=== PATIENT | male | born 1960 | race Caucasian/White ===

== ENCOUNTER 2019-04-29 16:38 | Inpatient (IN) | payer BC ==
[~2019-04-29] VITALS: Ht 188 cm; Wt 121.5 kg
[2019-04-29] MEDS ORDERED: ACETAMINOPHEN 325 MG TAB PO ONE ×2 (16:42→16:45)
[2019-04-29 17:26] LABS: Basophils # (auto) 0 uL; Basophils % (auto) 1.1 % (0.0-2.0); Eosinophils # (auto) 0 uL; Eosinophils % (auto) 0.3 % (0.0-7.0); Hematocrit 43.4 % (41.0-53.0); Hemoglobin 14.7 g/dL (13.5-17.5); Lymphocytes # (auto) 0.5 uL; Lymphocytes % (auto) 10.8 % (10.0-50.0); Mean Corpuscular Hemoglobin 29.6 pg (28.0-32.0); Mean Corpuscular Hgb Conc. 33.9 g/dL (32.0-36.0); Mean Corpuscular Volume 87.2 fL (80.0-100.0); Monocytes # (auto) 0.4 uL; Monocytes % (auto) 9.2 % (0.0-12.0); Neutrophils # (auto) 3.3 uL; Neutrophils % (auto) 78.6 % (37.0-80.0); Nucleated Red Blood Cells % 0.1 %; Platelet Count (auto) 212 10^3/uL (140-450); Red Blood Cells 4.98 10^6/uL (4.5-5.90); Red Cell Distribution Width 14.7 % (11.8-14.3); White Blood Cell 4.2 10^3/uL (4.4-10.8)
[2019-04-29 17:31] LABS: Albumin 3.8 g/dL (3.4-5.0); Anion Gap 6 (5-15); Blood Urea Nitrogen 18 mg/dL (7-18); Calcium 8.8 mg/dL (8.5-10.1); Carbon Dioxide 29 mmol/L (21-32); Chloride 101 mmol/L (98-107); Glucose 142 mg/dL (74-106); Magnesium 2.3 mg/dL (1.6-2.6); Potassium 3.5 mmol/L (3.5-5.1); Sodium 136 mmol/L (136-145)
[2019-04-29 17:37] LABS: Alanine Aminotransferase 54 U/L (16-61); Alkaline Phosphatase 45 U/L (45-117); Aspartate Aminotransferase 39 U/L (15-37); BUN/Creatinine Ratio 11.8; Bilirubin, Total 0.6 mg/dL (0.2-1.0); GFR African American 60 mL/min; GFR Non-African American 50 mL/min; Total Protein 7.7 g/dL (6.4-8.2)
[2019-04-29 18:52] LABS: INR 0.97 (0.9-1.15); Partial Thromboplastin Time 29.6 sec (23.64-32.05)
[2019-04-29] MEDS ORDERED: cefTRIAXone 1GM/50ML D5W 50 ML IV ONE (21:30)
[2019-04-29] MEDS ORDERED: SODIUM CHLORIDE 0.9% 500 ML IV ONE (21:30)
[2019-04-29] MEDS ORDERED: IODIXANOL 320MG/ML 100ML BTL IV ONE (22:05)
[2019-04-29] MEDS ORDERED: ONDANSETRON HCL 4 MG/2 ML VIAL IV PRN (23:00)
[2019-04-29] MEDS ORDERED: MORPHINE SULF INJ 2 MG/ML SYRINGE 1ML IV PRN (23:00)
[2019-04-29] MEDS ORDERED: TEMAZEPAM 15 MG CAP PO PRN (23:00)
[2019-04-29] MEDS ORDERED: ACETAMINOPHEN 325 MG TAB PO PRN (23:00)
[2019-04-29] MEDS ORDERED: NITROGLYCERIN 0.4 MG SL TAB SL PRN (23:00)
[2019-04-29] MEDS ORDERED: METOPROLOL TARTRATE 50 MG TAB PO ONE (23:00)
[2019-04-29] MEDS ORDERED: HYDROcodone-ACET 5/325MG TAB PO PRN (23:00)
[2019-04-30 03:00] VITALS: BP 121/69
[2019-04-30 06:34] LABS: Basophils # (auto) 0 uL; Eosinophils # (auto) 0 uL; Eosinophils % (auto) 0.4 % (0.0-7.0); Hematocrit 40.1 % (41.0-53.0); Hemoglobin 13.6 g/dL (13.5-17.5); Lymphocytes # (auto) 0.4 uL; Lymphocytes % (auto) 13.4 % (10.0-50.0); Mean Corpuscular Hemoglobin 29.3 pg (28.0-32.0); Mean Corpuscular Volume 86.2 fL (80.0-100.0); Monocytes # (auto) 0.4 uL; Monocytes % (auto) 12.5 % (0.0-12.0); Neutrophils # (auto) 2.3 uL; Neutrophils % (auto) 72.7 % (37.0-80.0); Nucleated Red Blood Cells % 0.3 %; Platelet Count (auto) 180 10^3/uL (140-450); Red Blood Cells 4.65 10^6/uL (4.5-5.90); Red Cell Distribution Width 14.5 % (11.8-14.3); White Blood Cell 3.2 10^3/uL (4.4-10.8)
[2019-04-30 06:47] LABS: BUN/Creatinine Ratio 13.6; Calcium 8.3 mg/dL (8.5-10.1); Potassium 3.4 mmol/L (3.5-5.1)
--- NOTE | 2019-04-30 07:30 | NUR ---
Opening Shift Note Assumed care of patient, awake and alert. No S/S of distress/SOB or pain. Sitting up at bedside with . Call light within reach, instructed on POC and to call for assist PRN, will continue to monitor for changes Q1hr and PRN.
[2019-04-30 08:00] VITALS: BP 161/91
[2019-04-30] MEDS: METOPROLOL TARTRATE 50 MG TAB PO SCH ×2 (08:36→22:27)
[2019-04-30] MEDS: HCTZ 25 MG TAB PO SCH (08:36)
[2019-04-30] MEDS: FAMOTIDINE 20 MG TAB PO SCH ×2 (08:37→22:27)
[2019-04-30] MEDS: CLOPIDOGREL BISULFATE 75 MG TAB PO SCH (08:37)
[2019-04-30 09:00] VITALS: BP 131/67
[2019-04-30] MEDS: cefTRIAXone 1GM/50ML D5W 50 ML IV SCH ×3 (09:00→16:25)
[2019-04-30 13:00] VITALS: BP 123/71
[2019-04-30 16:47] VITALS: BP 149/75
[2019-04-30 21:28] LABS: Urine Bacteria NONE SEEN /hpf (None Seen); Urine Blood Negative /uL (Negative); Urine Mucus FEW (None Seen); Urine Specific Gravity 1.009 (1.001-1.035); Urine WBC <1 /hpf (0 - 3)
[2019-04-30 22:00] VITALS: BP 140/69
[2019-05-01 05:32] VITALS: BP 130/68
[2019-05-01 05:45] LABS: Basophils # (auto) 0 uL; Basophils % (auto) 0.9 % (0.0-2.0); Eosinophils # (auto) 0 uL; Eosinophils % (auto) 0.6 % (0.0-7.0); Hematocrit 42.8 % (41.0-53.0); Hemoglobin 14.5 g/dL (13.5-17.5); Lymphocytes # (auto) 0.3 uL; Lymphocytes % (auto) 13.1 % (10.0-50.0); Mean Corpuscular Hemoglobin 29.2 pg (28.0-32.0); Mean Corpuscular Hgb Conc. 33.8 g/dL (32.0-36.0); Mean Corpuscular Volume 86.2 fL (80.0-100.0); Monocytes # (auto) 0.3 uL; Monocytes % (auto) 10.6 % (0.0-12.0); Neutrophils # (auto) 1.9 uL; Neutrophils % (auto) 74.8 % (37.0-80.0); Nucleated Red Blood Cells % 0.1 %; Platelet Count (auto) 189 10^3/uL (140-450); Red Blood Cells 4.96 10^6/uL (4.5-5.90); Red Cell Distribution Width 14.1 % (11.8-14.3); White Blood Cell 2.5 10^3/uL (4.4-10.8)
[2019-05-01 05:59] LABS: Albumin 3.2 g/dL (3.4-5.0); BUN/Creatinine Ratio 9.4; Calcium 8.8 mg/dL (8.5-10.1); Magnesium 2.2 mg/dL (1.6-2.6); Potassium 3.7 mmol/L (3.5-5.1)
[2019-05-01 06:03] LABS: Bilirubin, Total 0.4 mg/dL (0.2-1.0); Total Protein 6.8 g/dL (6.4-8.2)
--- NOTE | 2019-05-01 07:25 | NUR ---
Opening Note Received report from table games shift manager RN. Patient is awake, alert and oriented x4. No signs or symptoms of distress noted at this time. Patient denies pain at this time. Patient is on room air, respirations even and unlabored. Reviewed plan of care with patient, patient verbalized understanding. Bed in low and locked position, call light within reach. Will continue to monitor Q1 hour an PRN.
--- NOTE | 2019-05-01 08:05 | NUR ---
Patient ambulating in hallway Patient ambulating in hallway, gait steady. No signs or symptoms of distress noted at this time.
[2019-05-01] MEDS: cefTRIAXone 1GM/50ML D5W 50 ML IV SCH (08:40)
[2019-05-01 09:00] VITALS: BP 137/64
--- NOTE | 2019-05-01 10:30 | NUR ---
Family at bedside
[2019-05-01] MEDS: METOPROLOL TARTRATE 50 MG TAB PO SCH ×2 (11:03→22:06)
[2019-05-01] MEDS: HCTZ 25 MG TAB PO SCH (11:03)
[2019-05-01] MEDS: FAMOTIDINE 20 MG TAB PO SCH ×2 (11:03→22:06)
[2019-05-01] MEDS: CLOPIDOGREL BISULFATE 75 MG TAB PO SCH (11:04)
[2019-05-01 13:00] VITALS: BP 137/79
--- NOTE | 2019-05-01 15:15 | NUR ---
Dr. More at bedside Dr. More at bedside reviewing plan of care with patient and .
[2019-05-01] MEDS ORDERED: IOHEXOL 300 MG/ML 100ML BOTTLE IJ ONE (15:16)
[2019-05-01] MEDS ORDERED: GASTROGRAFIN 30 ML SOL ONE (15:16)
[2019-05-01] MEDS ORDERED: AZITHROMYCIN 500MG/ 250ML 250 ML IV ONE (16:00)
[2019-05-01 17:00] VITALS: BP 152/81
--- NOTE | 2019-05-01 18:04 | NUR ---
Patient taken down for CT
--- NOTE | 2019-05-01 19:00 | NUR ---
Patient back to room
--- NOTE | 2019-05-01 19:30 | NUR ---
Closing Note Report given to senior linux unix engineer RN. No signs or symptoms of distress noted at this time. Family at bedside.
--- NOTE | 2019-05-01 19:31 | NUR ---
Opening Shift Note Assumed care of patient, awake and alert. No S/S of distress/SOB or pain. at bedside. Bed in lowest locked position, side rails up x2, call light within reach. Instructed on POC and to call for assist PRN, will continue to monitor for changes Q1hr and PRN.
[2019-05-01 22:00] VITALS: BP 105/45
[2019-05-02 05:00] VITALS: BP 136/70
--- NOTE | 2019-05-02 06:31 | NUR ---
Temperature Temperature noted to be 99.4 and 99.6 respectively throughout shift. Cooling measures provided. Temperature reassessed at this time and found to be 98.9. No s/s of distress. Will continue to monitor.
--- NOTE | 2019-05-02 06:38 | NUR ---
Closing Note Patient lying in bed awake and alert. No s/s of distress. Will endorse care to dayshift RN.
[2019-05-02 07:01] LABS: Basophils # (auto) 0 uL; Basophils % (auto) 1.1 % (0.0-2.0); Eosinophils # (auto) 0 uL; Eosinophils % (auto) 0.8 % (0.0-7.0); Hematocrit 44.6 % (41.0-53.0); Hemoglobin 15.2 g/dL (13.5-17.5); Lymphocytes # (auto) 0.6 uL; Lymphocytes % (auto) 20.1 % (10.0-50.0); Mean Corpuscular Hemoglobin 29.2 pg (28.0-32.0); Mean Corpuscular Hgb Conc. 34.1 g/dL (32.0-36.0); Mean Corpuscular Volume 85.8 fL (80.0-100.0); Monocytes # (auto) 0.4 uL; Monocytes % (auto) 14.3 % (0.0-12.0); Neutrophils # (auto) 1.9 uL; Neutrophils % (auto) 63.7 % (37.0-80.0); Nucleated Red Blood Cells % 0.5 %; Platelet Count (auto) 220 10^3/uL (140-450); Red Blood Cells 5.19 10^6/uL (4.5-5.90); Red Cell Distribution Width 14.1 % (11.8-14.3)
[2019-05-02 07:12] LABS: Potassium 3.8 mmol/L (3.5-5.1)
[2019-05-02 07:17] LABS: BUN/Creatinine Ratio 10.4
--- NOTE | 2019-05-02 07:30 | NUR ---
OPENING SHIFT NOTE PATIENT IS UP AMBULATING WITH A STEADY GAIT SHOWING NO S/S OF DISTRESS OR SOB AT THIS TIME . DENIES ANY PAIN. PATIENT VERBALIZED UNDERSTANDING OF DAY POC. WILL CONTINUE TO MONITOR
[2019-05-02 08:00] VITALS: BP 138/76
[2019-05-02 08:35] VITALS: BP 138/76
[2019-05-02] MEDS: cefTRIAXone 1GM/50ML D5W 50 ML IV SCH (09:22)
[2019-05-02] MEDS ORDERED: AZITHROMYCIN 500MG/ 250ML 250 ML IV SCH (10:00)
[2019-05-02] MEDS: FAMOTIDINE 20 MG TAB PO SCH (10:27)
[2019-05-02] MEDS: CLOPIDOGREL BISULFATE 75 MG TAB PO SCH (10:27)
[2019-05-02] MEDS: HCTZ 25 MG TAB PO SCH (10:27)
[2019-05-02] MEDS: METOPROLOL TARTRATE 50 MG TAB PO SCH (10:27)
[2019-05-02] MEDS ORDERED: DOXY-216 PO (11:29)
[2019-05-02] MEDS ORDERED: DOXYCYCLINE 100MG/250ML 250 ML IV ONE (11:30)
[2019-05-02 12:25] VITALS: BP 130/76
[2019-05-02 12:30] VITALS: BP 130/76
--- NOTE | 2019-05-02 13:33 | NUR ---
DISCHARGE NOTE ALL DISCHARGE INSTRUCTIONS WERE GIVEN, ALL QUESTIONS AND CONCERNS ANSWERED AND ADDRESSED, PATIENT VERBALIZED UNDERSTANDING. PATIENT SHOWING NO S/S OF DISTRESS OR SOB AND DENIES ANY PAIN AT THIS TIME. PATIENT REQUESTED TO AMBULATE TO PERSONAL VEHICLE. PATIENTS GAIT IS STEADY. IV REMOVED USING [employer] TECHNIQUE CATHETER INTACT AND PRESSURE DRESSING APPLIED TOLERATED WELL. TELE BOX REMOVED AND RETURNED TO [facility].
== END 2019-05-02 13:30 | disposition home or self-care (01) | DRG 866 ==
LOC: ER 16:46 → TELE 22:55 → TELE-WESTW 04-30 02:08
PROVIDERS: ADMIT Nurse Practitioner; ATTEND Nurse Practitioner
DX: B34.9 Viral infection, unspecified (principal); E66.9 Obesity, unspecified; D72.819 Decreased white blood cell count, unspecified; E78.5 Hyperlipidemia, unspecified; I10 Essential (primary) hypertension; I25.10 Atherosclerotic heart disease of native coronary artery without angina pectoris; Z96.642 Presence of left artificial hip joint; K80.20 Calculus of gallbladder without cholecystitis without obstruction; Z95.5 Presence of coronary angioplasty implant and graft; Z68.34 Body mass index [BMI] 34.0-34.9, adult
CPT/HCPCS: 36415; 71046; 71260; 74177; 80048; 80053; 80061; 81001; 83605; 83735; 83880; 84443; 84484; 85025; 85379; 85610; 85652; 85730; 87040; 87086; 87804; 93005; 93306; 96365; G0378; J0696; Q9967